=== PATIENT | male | born 1990 | race Caucasian/White ===

== ENCOUNTER 2016-11-04 02:59 | Emergency (ER) | payer OTHER ==
[2016-11-04 03:50] LABS: BASO # 0.1 10_X3_uL (0.0-0.1); BASO % 0.5 % (0.2-1.2); EOS # 0.2 10_X3_uL (0.0-0.5); EOS % 1.7 % (0.8-7.0); GRAN # 4.9 10_X3_uL (1.8-5.4); GRAN % 49.1 % (34.0-67.9); HEMATOCRIT 42.7 % (40-51); HEMOGLOBIN 14.8 g/dL (13.7-17.5); LYMPH # 3.9 10_X3_uL (1.3-3.6); LYMPH % 38.6 % (21.8-53.1); MEAN CORPUSCULAR HEMOGLOBIN 28.7 pg (27.0-33.0); MEAN CORPUSCULAR HGB CONC 34.7 g/dL (32.0-36.0); MEAN CORPUSCULAR VOLUME 82.8 fL (79-92); MONO % 10.1 % (5.3-12.2); PLATELET COUNT 400 x10_3/uL (163-337); RED BLOOD COUNT 5.16 x10_6/uL (4.6-6.1); RED CELL DISTRIBUTION WIDTH 13.9 % (11.6-14.4)
[2016-11-04 03:59] LABS: ALBUMIN 4.4 gm/dL (3.4-5.0); ALKALINE PHOSPHATASE 67 U/L (50-136); ALT/SGPT 24 U/L (7.53-40.17); AST/SGOT 16 U/L (6.66-35.34); BILIRUBIN,TOTAL 0.26 mg/dL (0.0-1.0); BLOOD UREA NITROGEN 17 mg/dL (7-18); CALCIUM 9.1 mg/dL (8.7-10.7); CARBON DIOXIDE 26 mmol/L (21-32); GLUCOSE,RANDOM 98 mg/dL (70-99); POTASSIUM 4.1 mmol/L (3.5-5.1); SODIUM 142 mmol/L (136-145); TOTAL PROTEIN 7.2 gm/dL (6.4-8.2)
[2016-11-04 04:17] LABS: PARTIAL THROMBOPLASTIN TIME 27.1 SECONDS (21.3-29.3)
[2016-11-04 04:18] LABS: DDIMER < 0.19 mgFEU/L (0.19-0.50)
== END 2016-11-04 04:55 | disposition home or self-care (01) ==
LOC: ER 02:59
PROVIDERS: Emergency Medicine
DX: R07.81 Pleurodynia (principal); R06.00 Dyspnea, unspecified; Z88.2 Allergy status to sulfonamides
CPT/HCPCS: 36415; 71020; 80053; 85025; 85379; 85610; 85730; 93005; 96372; 99283-25